=== PATIENT | male | born 1985 | race Caucasian/White ===

== ENCOUNTER 2023-09-13 07:53 | Inpatient (IN) | payer SELFPAY ==
[2023-09-13] MEDS ORDERED: Ketorolac Tromethamine 30 MG (1 mL) VIAL ONE (10:24)
[2023-09-13] MEDS ORDERED: Ondansetron PF 4 MG/2 ML Vial IVP PRN ×2 (11:10→19:05)
[2023-09-13] MEDS ORDERED: Dextrose 50% Abboject 50 ML SYRINGE SLOW IVP PRN ×2 (11:10→19:05)
[2023-09-13] MEDS ORDERED: Ipratropium/Albuterol 3 ML NEB NEB PRN ×2 (11:10→19:05)
[2023-09-13] MEDS ORDERED: hydrALAZINE 20 MG/ML VIAL SLOW IVP PRN (11:10)
[2023-09-13] MEDS ORDERED: Glucagon 1 MG/ML KIT IM PRN ×2 (11:10→19:05)
[2023-09-13] MEDS ORDERED: Morphine 2 MG/ML VIAL SLOW IVP PRN (11:10)
[2023-09-13] MEDS ORDERED: Acetaminophen 325 MG TAB PO PRN (11:10)
[2023-09-13] MEDS ORDERED: Mag-Al 1200 mg/1200 mg/30 ML UDCUP PO PRN ×2 (11:10→19:05)
[2023-09-13] MEDS ORDERED: Promethazine HCl 25 MG/ML VIAL IM PRN (11:10)
[2023-09-13] MEDS ORDERED: HYDROcodone/Acetaminophen 10/325 mg Tablet PO PRN ×2 (11:10→19:08)
[2023-09-13] MEDS ORDERED: Dextrose 5% in Water 1,000 ML IV PRN ×2 (11:10→19:05)
[2023-09-13] MEDS ORDERED: Calcium Carbonate 500 MG ChewTAB PO PRN ×2 (11:10→19:05)
[2023-09-13 12:36] VITALS: BMI 31.9
[2023-09-13] MEDS: LevoFLOXacin 750 mg/D5W 750 MG in Premix 1 BAG IVPB SCH (13:44)
[2023-09-13] MEDS ORDERED: Indocyanine Green 25 MG/10 ML VIAL ONE (14:42)
[2023-09-13] MEDS: Ketorolac Tromethamine 30 MG (1 mL) VIAL IVP SCH (15:46)
[2023-09-13] MEDS: Sodium Chloride 0.9% 1,000 ML IV SCH (15:46)
[2023-09-13] MEDS ORDERED: Bupivacaine 0.25% HCL 30 ML VIAL ONE (15:48)
[2023-09-13] MEDS ORDERED: EPINEPHrine 1 MG/ML VIAL ONE (15:48)
[2023-09-13] MEDS ORDERED: PROPOFOL 20 ML ONE (16:26)
[2023-09-13] MEDS ORDERED: Lidocaine 1% PF 5 ML VIAL ONE (16:26)
[2023-09-13] MEDS ORDERED: Rocuronium Bromide 10 MG/ML (10ML VIAL) ONE (16:26)
[2023-09-13] MEDS ORDERED: SUCCINYLCHOLINE/SOD CL,ISO/PF 200 MG/10 ML SYRINGE FS ONE (16:26)
[2023-09-13] MEDS ORDERED: fentaNYL PF 100 MCG/2 ML SYRINGE ONE ×3 (16:26→18:48)
[2023-09-13] MEDS ORDERED: Midazolam HCl 2 mg/2 ml Vial ONE (16:26)
[2023-09-13] MEDS ORDERED: Dexamethasone 20 MG/5 ML VIAL ONE (18:17)
[2023-09-13] MEDS ORDERED: PHENYLEPHRINE-NS 100 MCG/ML 10 ML SYRINGE ONE (18:19)
[2023-09-13] MEDS ORDERED: Dexmedetomidine 200 MCG/2 ML VIAL ONE (18:24)
[2023-09-13] MEDS ORDERED: D5 1/2 NS w/20 mEq KCL 1,000 ML ONE (19:24)
[2023-09-13] MEDS ORDERED: Famotidine 20 MG TAB PO SCH (21:00)
[2023-09-13] MEDS: D5 1/2 NS w/20 mEq KCL 1,000 ML IV SCH (21:09)
[2023-09-13] MEDS: Piperacillin/Tazobactam 3.375 GM in Sodium Chloride 0.9% 100 ML IVPB SCH (21:13)
[2023-09-13] MEDS: Famotidine 20 MG TAB PO SCH (21:13)
[2023-09-13] MEDS: Docusate 100 MG CAP PO SCH (21:14)
[2023-09-13] MEDS: Famotidine/PF 20 mg/2ml Vial SLOW IVP SCH (21:14)
[2023-09-13] MEDS: traMADol HCl 50 MG TAB PO PRN (21:31)
[2023-09-13] MEDS: Piperacillin/Tazobactam 4.5 GM in Sodium Chloride 0.9% 100 ML IVPB SCH (23:31)
[2023-09-14] MEDS: Ketorolac Tromethamine 30 MG (1 mL) VIAL IVP SCH (00:33)
[2023-09-14] MEDS: Piperacillin/Tazobactam 3.375 GM in Sodium Chloride 0.9% 100 ML IVPB SCH (00:35)
[2023-09-14 06:03] LABS: #Basophils Less than 0.03 10x3/uL (0.0-0.2); #Eosinphils Less than 0.03 10x3/uL (0.0-0.7); %Basophils 0.1 % (0.0-1.0); %Eosinophils 0.1 % (0.0-10.0); %Lymphocytes 9.5 % (21.0-51.0); %Monocytes 9.7 % (0.0-10.0); %Neutrophils 80.3 % (42.0-75.0); Hematocrit 36.4 % (42.0-52.0); Hemoglobin 12.5 g/dL (14.0-18.0); Mean Corpuscular HGB CONC 34.3 g/dL (32.0-36.0); Mean Corpuscular Hemoglobin 30.8 pg (27.0-31.0); Mean Corpuscular Volume 89.7 fL (78.0-98.0); Mean Platelet Volume 9.2 fL (7.4-10.4); Platelet Count 269 10x3/uL (130-400); RBC Distribution Width 12.2 % (11.5-14.5); Red Blood Cell (RBC) Count 4.06 mill/uL (4.70-6.10)
[2023-09-14 06:14] LABS: ALT (SGPT) 38 U/L (8-55); AST (SGOT) 31 U/L (5-34); Albumin 3.6 g/dL (3.5-5.0); Alkaline Phosphatase 38 U/L (40-110); Anion Gap 13 mmol/L (10-20); BUN (Urea Nitrogen) 11 mg/dL (8.9-20.6); Bilirubin, Total 0.9 mg/dL (0.2-1.2); Calc. Creatinine Clearance 131 mL/min (70-130); Calcium 8.7 mg/dL (7.8-10.44); Carbon Dioxide 23 mmol/L (22-29); Chloride 106 mmol/L (98-107); Estimated GFR 94; Globulin 2.9 g/dL (2.4-3.5); Glucose 112 mg/dL (70-105); Potassium 4.2 mmol/L (3.5-5.1); Protein, Total 6.5 g/dL (6.0-8.3); Sodium 138 mmol/L (136-145)
[2023-09-14] MEDS: Enoxaparin 40 MG (0.4 mL) SYRINGE SC SCH (09:56)
[2023-09-14 12:25] VITALS: BP 145/61; TEMP 98.5
== END 2023-09-14 15:15 | disposition home or self-care (01) | DRG 419 ==
LOC: ERS 07:53 → SURG A 12:00
PROVIDERS: ADMIT Surgery; ATTEND Surgery
PROC: 0FT44ZZ Resection of Gallbladder, Percutaneous Endoscopic Approach (ICD-10-PCS; principal; 2023-09-13)
PROC: BF522Z0 Other Imaging of Gallbladder using Fluorescing Agent, Intraoperative (ICD-10-PCS; 2023-09-13)
PROC: 8E0W4CZ Robotic Assisted Procedure of Trunk Region, Percutaneous Endoscopic Approach (ICD-10-PCS; 2023-09-13)
DX: K80.00 Calculus of gallbladder with acute cholecystitis without obstruction (principal); F17.220 Nicotine dependence, chewing tobacco, uncomplicated
CPT/HCPCS: 36415; 76705; 80053; 85025; 88304; 96374; C1889; J0171; J0665; J1100; J1650; J1885; J1956; J2250; J2543; J2704; J3480; J3490